=== PATIENT | male | born 2005 | race Caucasian/White ===

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

== ENCOUNTER 2024-04-28 04:14 | Emergency (ER) | payer OTHER ==
[~2024-04-28] VITALS: Ht 185.4 cm; Wt 81.6 kg
[~2024-04-28 04:14] MED LIST changes: +EPIN0.3P3 IM; +PRED50TA PO
[2024-04-28 04:50] VITALS: BP 121/86; TEMP 98.1; O2SAT 98
[2024-04-28] MEDS ORDERED: AMOX-430 PO (04:59)
[2024-04-28] MEDS ORDERED: HYDR-3980 PO (04:59)
[2024-04-28] MEDS ORDERED: HYDROCODONE/APAP 5/325MG TABLET ONE (05:00)
[2024-04-28] MEDS: HYDROCODONE/APAP 5/325MG TABLET PO ONE (05:03)
== END 2024-04-28 05:05 | disposition home or self-care (01) ==
LOC: ER 04:18
DX: K08.89 Other specified disorders of teeth and supporting structures (principal); K01.1 Impacted teeth; F41.9 Anxiety disorder, unspecified; F19.10 Other psychoactive substance abuse, uncomplicated; Z88.8 Allergy status to other drugs, medicaments and biological substances; Z91.018 Allergy to other foods